=== PATIENT | female | born 1960 | race Caucasian/White ===

== ENCOUNTER 2021-03-12 15:56 | Emergency (ER) | payer OTHER ==
[2021-03-12 16:12] VITALS: BP 153/81; PULSE 111
[2021-03-12 17:21] LABS: ANION GAP 10.9 mEq/L (7-13); CHLORIDE,CL 92 mmol/L (98-107); SODIUM,NA 128 mmol/L (136-145)
[2021-03-12] MEDS ORDERED: Doxycycline Monohydrate 100 MG Cap PO ONE (17:39)
[2021-03-12] MEDS ORDERED: Sodium Chloride 0.9% 1,000 ML IV ONE (17:39)
[2021-03-12 17:45] LABS: CORONAVIRUS COVID-19 NAA NEGATIVE (NEGATIVE)
[2021-03-12] MEDS ORDERED: Doxycycline Monohydrate 100 MG Cap ONE (18:11)
== END 2021-03-12 19:09 | disposition home or self-care (01) ==
LOC: DL.ED 15:56
DX: J18.9 Pneumonia, unspecified organism (principal); I10 Essential (primary) hypertension; D75.839 Thrombocytosis, unspecified; Z88.0 Allergy status to penicillin; Z79.899 Other long term (current) drug therapy; Z87.891 Personal history of nicotine dependence; Z20.822 Contact with and (suspected) exposure to COVID-19
CPT/HCPCS: 0240U; 36415; 71045; 80053; 83605; 84484; 85025; 86140; 93010; 99285; A9270; J7030

== ENCOUNTER 2021-03-22 09:16 | Inpatient (IN) | payer OTHER ==
[2021-03-22] MEDS ORDERED: Sodium Chloride 0.9% 10 ML Syringe FLUSH PRN ×2 (09:39→14:32)
[2021-03-22 10:19] LABS: ANION GAP 15.3 mEq/L (7-13); CHLORIDE,CL 92 mmol/L (98-107); SODIUM,NA 126 mmol/L (136-145)
[2021-03-22 10:41] LABS: CORONAVIRUS COVID-19 NAA NEGATIVE (NEGATIVE); RESPIRATORY SYNCYTIAL VIR NAA NEGATIVE (NEGATIVE)
[2021-03-22] MEDS ORDERED: Iopamidol 612 MG/ML 100 ML Bottle IVPUSH ONE (10:56)
[2021-03-22] MEDS ORDERED: Clindamycin in 0.9 % Sod Chlor 600 MG in Premix Bag 1 BAG IV ONE ×2 (11:42)
[2021-03-22] MEDS ORDERED: Ondansetron 4 MG/2 ML SDV IVPUSH PRN (14:32)
[2021-03-22] MEDS ORDERED: Temazepam 15 MG Cap PO PRN (14:32)
[2021-03-22] MEDS ORDERED: Acetaminophen 325 MG Tab PO PRN (14:32)
[2021-03-22] MEDS ORDERED: Temazepam 15 MG Cap GTUBE PRN (14:42)
[2021-03-22] MEDS ORDERED: Acetaminophen Soln 160 MG/5 ML UD Cup GTUBE PRN ×2 (15:22→15:57)
[2021-03-22] MEDS ORDERED: Albuterol 0.083% 2.5 MG/3 ML Neb Soln INH PRN (15:35)
[2021-03-22] MEDS ORDERED: Ibuprofen Susp 100 MG/5 ML 5 ML UD Cup PO PRN (15:57)
[2021-03-22] MEDS ORDERED: Ibuprofen Susp 100 MG/5 ML 5 ML UD Cup GTUBE PRN (15:58)
[2021-03-22] MEDS ORDERED: HYDROMORPHONE 1 MG/ML PO PRN (16:31)
[2021-03-22] MEDS: MAGIC MOUTH WASH PO PRN ×2 (16:47→19:48)
[2021-03-22] MEDS: Clindamycin in 0.9 % Sod Chlor 600 MG/50 ML BAG IV SCH (19:50)
[2021-03-22] MEDS ORDERED: Clindamycin Phosphate 600 MG in Sodium Chloride 0.9% 100 ML IV SCH (20:00)
[2021-03-22] MEDS ORDERED: Heparin Sodium 5,000 Units/ML Vial SUBCUT SCH (22:00)
[2021-03-23] MEDS: MAGIC MOUTH WASH PO PRN ×2 (00:24→05:32)
[2021-03-23] MEDS: Clindamycin in 0.9 % Sod Chlor 600 MG/50 ML BAG IV SCH (04:57)
[2021-03-23 05:31] VITALS: BP 110/63; PULSE 126
[2021-03-23] MEDS ORDERED: Lisinopril 20 MG Tab GTUBE SCH (09:00)
[2021-03-24] MEDS ORDERED: FENTANYL 75 MCG TOP SCH (21:00)
== END 2021-03-23 06:00 | disposition home or self-care (01) | DRG 194 ==
LOC: DL.ED 09:16 → DL.MS 13:23
PROVIDERS: ADMIT Internal Medicine; ATTEND Internal Medicine
DX: J18.9 Pneumonia, unspecified organism (principal); J44.0 Chronic obstructive pulmonary disease with (acute) lower respiratory infection; E87.1 Hypo-osmolality and hyponatremia; H54.7 Unspecified visual loss; M54.9 Dorsalgia, unspecified; G89.29 Other chronic pain; M54.2 Cervicalgia; I10 Essential (primary) hypertension; Z20.822 Contact with and (suspected) exposure to COVID-19; E61.1 Iron deficiency; R13.10 Dysphagia, unspecified; Z88.0 Allergy status to penicillin; Z88.1 Allergy status to other antibiotic agents; Z87.891 Personal history of nicotine dependence; Z28.82 Immunization not carried out because of caregiver refusal; Z85.810 Personal history of malignant neoplasm of tongue
CPT/HCPCS: 0241U; 36415; 71045; 71260; 80053; 81003; 83605; 85025; 86140; 87040; 96365; 99285-25; J3490; Q9967

== ENCOUNTER 2021-03-23 10:39 | Inpatient (IN) | payer OTHER ==
[2021-03-23] MEDS ORDERED: Albuterol 0.083% 2.5 MG/3 ML Neb Soln INH PRN (11:19)
[2021-03-23] MEDS ORDERED: Ibuprofen Susp 100 MG/5 ML 5 ML UD Cup PO PRN (11:22)
[2021-03-23] MEDS ORDERED: HYDROMORPHONE 1 MG/ML PO PRN (11:58)
[2021-03-23] MEDS ORDERED: HYDROmorphone 0.5 MG/0.5 ML Syringe IVPUSH ONE (12:24)
[2021-03-23] MEDS: metroNIDAZOLE/Normal Saline 500 MG in Premix Bag 100 BAG IV SCH ×2 (12:38→20:25)
[2021-03-23] MEDS ORDERED: Patient's Own Medication 1 Each PO PRN (13:11)
[2021-03-23] MEDS: HYDROMORPHONE 1 MG/ML PO PRN ×2 (16:14→20:36)
[2021-03-23] MEDS: DEXAMETHASONE 0.5 MG/5 ML PO SCH ×2 (16:31→17:54)
[2021-03-23] MEDS: Acetaminophen Soln 160 MG/5 ML UD Cup PO PRN (18:08)
[2021-03-23] MEDS: Check Patch TRDERM SCH (20:29)
[2021-03-24] MEDS: HYDROMORPHONE 1 MG/ML PO PRN ×4 (03:01→18:11)
[2021-03-24] MEDS: metroNIDAZOLE/Normal Saline 500 MG in Premix Bag 100 BAG IV SCH ×3 (05:05→21:12)
[2021-03-24 07:51] LABS: ANION GAP 13.3 mEq/L (7-13); CHLORIDE,CL 98 mmol/L (98-107); SODIUM,NA 131 mmol/L (136-145)
[2021-03-24] MEDS: MAGIC MOUTH WASH PO PRN ×4 (08:36→21:25)
[2021-03-24] MEDS: DEXAMETHASONE 0.5 MG/5 ML PO SCH ×3 (08:37→16:11)
[2021-03-24] MEDS: Lidocaine 5% 700 MG Patch TOP SCH (08:41)
[2021-03-24] MEDS: Check Patch TRDERM SCH ×2 (08:43→21:26)
[2021-03-24] MEDS ORDERED: Lisinopril 20 MG Tab PO SCH (09:00)
[2021-03-24] MEDS ORDERED: Omeprazole 20 MG Cap.CR PO SCH (09:00)
[2021-03-24] MEDS: cefTRIAXone 2 GM in Sodium Chloride 0.9% 100 ML IV SCH (12:13)
[2021-03-24] MEDS: Omeprazole 20 MG Cap.CR PO SCH (12:23)
[2021-03-24] MEDS: Lisinopril 20 MG Tab PO SCH (12:23)
[2021-03-24] MEDS ORDERED: Sodium Chloride 0.9% 10 ML Syringe FLUSH PRN (13:55)
[2021-03-24] MEDS ORDERED: fentaNYL 25 MCG/HR Transdermal Patch TRDERM SCH (21:00)
[2021-03-24] MEDS ORDERED: [UNRECOGNIZED DRUG - REMARK] TRDERM SCH (21:00)
[2021-03-24] MEDS ORDERED: fentaNYL 50 MCG/HR Transdermal Patch TRDERM SCH (21:00)
[2021-03-24] MEDS: [UNRECOGNIZED DRUG - REMARK] TRDERM SCH (21:27)
[2021-03-25] MEDS: HYDROMORPHONE 1 MG/ML PO PRN ×4 (00:30→23:54)
[2021-03-25] MEDS: metroNIDAZOLE/Normal Saline 500 MG in Premix Bag 100 BAG IV SCH ×3 (03:54→19:57)
[2021-03-25] MEDS: MAGIC MOUTH WASH PO PRN ×5 (04:05→23:55)
[2021-03-25] MEDS: Check Patch TRDERM SCH ×2 (08:21→23:55)
[2021-03-25] MEDS: DEXAMETHASONE 0.5 MG/5 ML PO SCH ×3 (08:21→17:14)
[2021-03-25] MEDS: Enoxaparin 40 MG/0.4 ML Syringe SUBCUT SCH (08:22)
[2021-03-25] MEDS: Lidocaine 5% 700 MG Patch TOP SCH (08:22)
[2021-03-25] MEDS: cefTRIAXone 2 GM in Sodium Chloride 0.9% 100 ML IV SCH (12:18)
[2021-03-25] MEDS: Lisinopril 20 MG Tab PO SCH (12:36)
[2021-03-25] MEDS: Omeprazole 20 MG Cap.CR PO SCH (12:38)
[2021-03-25] MEDS: [UNRECOGNIZED DRUG - REMARK] TRDERM SCH (23:55)
[2021-03-26] MEDS: Acetaminophen Soln 160 MG/5 ML UD Cup PO PRN (02:21)
[2021-03-26] MEDS: metroNIDAZOLE/Normal Saline 500 MG in Premix Bag 100 BAG IV SCH (04:22)
[2021-03-26] MEDS: HYDROMORPHONE 1 MG/ML PO PRN (04:48)
[2021-03-26 07:54] LABS: ANION GAP 11.1 mEq/L (7-13); CHLORIDE,CL 101 mmol/L (98-107); SODIUM,NA 133 mmol/L (136-145)
[2021-03-26 08:10] VITALS: BP 115/65; PULSE 102
[2021-03-26] MEDS: Lidocaine 5% 700 MG Patch TOP SCH (08:32)
[2021-03-26] MEDS: Enoxaparin 40 MG/0.4 ML Syringe SUBCUT SCH (08:32)
[2021-03-26] MEDS: DEXAMETHASONE 0.5 MG/5 ML PO SCH (08:36)
[2021-03-26] MEDS: MAGIC MOUTH WASH PO PRN (08:36)
[2021-03-26] MEDS: Check Patch TRDERM SCH (08:38)
== END 2021-03-26 11:00 | disposition home or self-care (01) | DRG 193 ==
LOC: DL.MS 10:40 → UNDOADMIN 10:40 → DL.MS 11:15
PROVIDERS: ADMIT Internal Medicine; ATTEND Internal Medicine
DX: J18.9 Pneumonia, unspecified organism (principal); J96.00 Acute respiratory failure, unspecified whether with hypoxia or hypercapnia; E87.1 Hypo-osmolality and hyponatremia; J90 Pleural effusion, not elsewhere classified; Z68.1 Body mass index [BMI] 19.9 or less, adult; J44.9 Chronic obstructive pulmonary disease, unspecified; J32.9 Chronic sinusitis, unspecified; C76.0 Malignant neoplasm of head, face and neck; D63.0 Anemia in neoplastic disease; R63.4 Abnormal weight loss; I10 Essential (primary) hypertension; Z68.24 Body mass index [BMI] 24.0-24.9, adult; Z79.899 Other long term (current) drug therapy; Z79.52 Long term (current) use of systemic steroids; Z79.1 Long term (current) use of non-steroidal anti-inflammatories (NSAID); Z87.01 Personal history of pneumonia (recurrent); Z90.89 Acquired absence of other organs; Z98.890 Other specified postprocedural states; Z93.1 Gastrostomy status
CPT/HCPCS: 36415; 71045; 80048; 82728; 83540; 83550; 83615; 83930; 84155; 85027; 87493; 94010; A9270-GY; J0696; J1650; J3490

== ENCOUNTER 2021-05-17 06:01 | Inpatient (IN) | payer OTHER ==
[2021-05-17] MEDS ORDERED: Acetaminophen 500 MG Tab PO ONE (06:56)
[2021-05-17] MEDS ORDERED: Acetaminophen Soln 160 MG/5 ML UD Cup PO ONE (07:12)
[2021-05-17 07:18] LABS: ANION GAP 13.8 mEq/L (7-13); CHLORIDE,CL 95 mmol/L (98-107); SODIUM,NA 132 mmol/L (136-145)
[2021-05-17 07:31] LABS: CORONAVIRUS COVID-19 NAA NEGATIVE (NEGATIVE); RESPIRATORY SYNCYTIAL VIR NAA NEGATIVE (NEGATIVE)
[2021-05-17] MEDS ORDERED: Meropenem 1 GM in Sodium Chloride 0.9% 100 ML IV ONE (07:55)
[2021-05-17] MEDS ORDERED: Sodium Chloride 0.9% 500 ML IV SCH (08:00)
[2021-05-17] MEDS ORDERED: Albuterol 0.083% 2.5 MG/3 ML Neb Soln INH PRN (10:41)
[2021-05-17] MEDS ORDERED: Ondansetron 4 MG/2 ML SDV IVPUSH PRN (10:44)
[2021-05-17] MEDS: Aspirin 325 MG Tab GTUBE SCH (11:28)
[2021-05-17] MEDS ORDERED: Levofloxacin/Dextrose 5%-Water 750 MG in Premix Bag 1 BAG IV SCH (12:00)
[2021-05-17] MEDS ORDERED: Sodium Chloride 0.9% 10 ML Syringe FLUSH PRN (12:40)
[2021-05-17] MEDS: Heparin Sodium 5,000 Units/ML Vial SUBCUT SCH ×2 (13:54→21:37)
[2021-05-17] MEDS ORDERED: Ibuprofen Susp 100 MG/5 ML 5 ML UD Cup PO PRN (14:11)
[2021-05-17] MEDS: MAGIC MOUTHWASH PO PRN ×5 (14:11→23:46)
[2021-05-17] MEDS: NYSTATIN 100000 UNIT/ML PO SCH ×2 (17:11→20:24)
[2021-05-17] MEDS: VANCOMYCIN HCL PO SCH ×2 (17:12→20:25)
[2021-05-17] MEDS: ACETAMINOPHEN PO PRN (17:15)
[2021-05-17] MEDS: HYDROMORPHONE 1 MG/ML PO PRN (17:47)
[2021-05-18] MEDS: MAGIC MOUTHWASH PO PRN ×9 (03:02→23:19)
[2021-05-18] MEDS: ACETAMINOPHEN PO PRN ×2 (03:04→16:13)
[2021-05-18] MEDS: Heparin Sodium 5,000 Units/ML Vial SUBCUT SCH ×3 (05:45→21:15)
[2021-05-18 06:32] LABS: ANION GAP 11.9 mEq/L (7-13); CHLORIDE,CL 101 mmol/L (98-107); SODIUM,NA 137 mmol/L (136-145)
[2021-05-18] MEDS: Aspirin 325 MG Tab GTUBE SCH (08:04)
[2021-05-18] MEDS: PROBIOTIC PO SCH (08:21)
[2021-05-18] MEDS: VANCOMYCIN HCL PO SCH ×4 (08:22→20:11)
[2021-05-18] MEDS: NYSTATIN 100000 UNIT/ML PO SCH ×4 (08:30→20:12)
[2021-05-18] MEDS ORDERED: fentaNYL 50 MCG/HR Transdermal Patch TRDERM SCH (09:00)
[2021-05-18] MEDS: HYDROMORPHONE 1 MG/ML PO PRN ×5 (09:13→23:19)
[2021-05-18] MEDS: Levofloxacin/Dextrose 5%-Water 750 MG in Premix Bag 1 BAG IV SCH (09:25)
[2021-05-18] MEDS: LORazepam 0.5 MG Tab GTUBE PRN (10:36)
[2021-05-19] MEDS: MAGIC MOUTHWASH PO PRN ×7 (01:05→11:57)
[2021-05-19] MEDS: ACETAMINOPHEN PO PRN (02:22)
[2021-05-19] MEDS: HYDROMORPHONE 1 MG/ML PO PRN ×2 (04:49→10:23)
[2021-05-19] MEDS: Heparin Sodium 5,000 Units/ML Vial SUBCUT SCH (05:57)
[2021-05-19] MEDS: Aspirin 325 MG Tab GTUBE SCH (09:10)
[2021-05-19] MEDS: PROBIOTIC PO SCH (09:10)
[2021-05-19] MEDS: VANCOMYCIN HCL PO SCH ×2 (09:11→12:01)
[2021-05-19] MEDS: NYSTATIN 100000 UNIT/ML PO SCH ×2 (09:11→12:00)
[2021-05-19] MEDS: Levofloxacin/Dextrose 5%-Water 750 MG in Premix Bag 1 BAG IV SCH (09:12)
[2021-05-19] MEDS ORDERED: Morphine 2 MG/ML SYRINGE IVPUSH PRN (10:19)
[2021-05-19] MEDS: LORazepam 0.5 MG Tab GTUBE PRN (10:22)
[2021-05-19 13:06] VITALS: BP 98/64; PULSE 107
[2021-05-19] MEDS ORDERED: HYDROMORPHONE 1 MG/ML JTUBE PRN (13:37)
[2021-05-19] MEDS ORDERED: Aspirin 325 MG Tab JTUBE SCH (13:38)
[2021-05-19] MEDS ORDERED: LORazepam 0.5 MG Tab JTUBE PRN (13:39)
[2021-05-19] MEDS ORDERED: ACETAMINOPHEN JTUBE PRN (13:39)
[2021-05-19] MEDS ORDERED: Ibuprofen Susp 100 MG/5 ML 5 ML UD Cup JTUBE PRN (13:39)
[2021-05-19] MEDS ORDERED: PROBIOTIC JTUBE SCH (13:40)
[2021-05-19] MEDS ORDERED: VANCOMYCIN HCL JTUBE SCH (13:40)
== END 2021-05-19 12:53 | DRG 177 ==
LOC: DL.ED 06:01 → DL.MS 08:05
PROVIDERS: ADMIT Internal Medicine; ATTEND Hospitalist
PROC: 3E0G76Z Introduction of Nutritional Substance into Upper GI, Via Natural or Artificial Opening (ICD-10-PCS; principal; 2021-05-17)
PROC: 0DW6XUZ Revision of Feeding Device in Stomach, External Approach (ICD-10-PCS; 2021-05-19)
DX: J69.0 Pneumonitis due to inhalation of food and vomit (principal); J96.01 Acute respiratory failure with hypoxia; E87.1 Hypo-osmolality and hyponatremia; E44.0 Moderate protein-calorie malnutrition; A04.72 Enterocolitis due to Clostridium difficile, not specified as recurrent; C09.9 Malignant neoplasm of tonsil, unspecified; H54.7 Unspecified visual loss; I10 Essential (primary) hypertension; J44.9 Chronic obstructive pulmonary disease, unspecified; G89.29 Other chronic pain; M54.2 Cervicalgia; G43.909 Migraine, unspecified, not intractable, without status migrainosus; E61.1 Iron deficiency; Z20.822 Contact with and (suspected) exposure to COVID-19; Z79.82 Long term (current) use of aspirin; Z79.899 Other long term (current) drug therapy; Z92.21 Personal history of antineoplastic chemotherapy; Z92.3 Personal history of irradiation; Z88.0 Allergy status to penicillin; Z87.01 Personal history of pneumonia (recurrent); Z86.19 Personal history of other infectious and parasitic diseases; Z90.89 Acquired absence of other organs; Z87.891 Personal history of nicotine dependence
CPT/HCPCS: 0241U; 36415; 71045; 80048; 80053; 81001; 83605; 83735; 84100; 84443; 84484; 85025; 85379; 86140; 87040; 87086; 93005; 99222; 99285-25; A9270-GY; J1644; J1956; J2185; J2270; J3490; J7040

== ENCOUNTER 2021-05-19 16:52 | Inpatient (IN) | payer OTHER ==
[2021-05-19] MEDS ORDERED: Bisacodyl 5 MG Tab PO PRN (17:12)
[2021-05-19] MEDS ORDERED: Albuterol 0.083% 2.5 MG/3 ML Neb Soln NEB PRN (17:12)
[2021-05-19] MEDS ORDERED: Ondansetron 4 MG Tab.DIS PO PRN (17:12)
[2021-05-19] MEDS ORDERED: Promethazine 25 MG Tab PO PRN (17:12)
[2021-05-19] MEDS: HYDROMORPHONE PO PRN ×2 (17:30→23:21)
[2021-05-19] MEDS: MAGIC MOUTHWASH PO PRN ×5 (17:44→23:21)
[2021-05-19] MEDS ORDERED: Levofloxacin 500 MG Tab PO SCH (17:45)
[2021-05-19] MEDS: ACID JTUBE SCH (20:40)
[2021-05-19] MEDS: [UNRECOGNIZED DRUG - OTHER] JTUBE SCH (20:40)
[2021-05-19] MEDS: NYSTATIN 100000 UNIT/ML PO SCH (20:42)
[2021-05-19] MEDS: VANCOMYCIN HCL JTUBE SCH (20:44)
[2021-05-19] MEDS: Enoxaparin 40 MG/0.4 ML Syringe SUBCUT SCH (21:38)
[2021-05-20] MEDS: MAGIC MOUTHWASH PO PRN ×9 (03:17→22:54)
[2021-05-20] MEDS ORDERED: Nitroglycerin 0.4 MG Tab.SL SL PRN (03:32)
[2021-05-20] MEDS: Morphine 2 MG/ML SYRINGE IVPUSH PRN ×3 (03:50→17:35)
[2021-05-20 06:19] LABS: ANION GAP 9.7 mEq/L (7-13); CHLORIDE,CL 95 mmol/L (98-107); SODIUM,NA 127 mmol/L (136-145)
[2021-05-20] MEDS ORDERED: Aspirin 81 MG Tab.Chew GTUBE SCH (08:00)
[2021-05-20] MEDS ORDERED: fentaNYL 50 MCG/HR Transdermal Patch TRDERM SCH (09:30)
[2021-05-20] MEDS: HYDROMORPHONE PO PRN ×2 (09:41→14:16)
[2021-05-20] MEDS ORDERED: Doxycycline Monohydrate 100 MG Cap PO SCH (09:45)
[2021-05-20] MEDS ORDERED: Doxycycline Monohydrate 100 MG Cap JTUBE SCH (09:50)
[2021-05-20] MEDS ORDERED: Bisacodyl 5 MG Tab JTUBE PRN (09:50)
[2021-05-20] MEDS: ACID JTUBE SCH (09:51)
[2021-05-20] MEDS: [UNRECOGNIZED DRUG - OTHER] JTUBE SCH (09:51)
[2021-05-20] MEDS ORDERED: Promethazine 25 MG Tab JTUBE PRN (09:52)
[2021-05-20] MEDS: NYSTATIN 100000 UNIT/ML PO SCH ×4 (09:52→20:54)
[2021-05-20] MEDS: VANCOMYCIN HCL JTUBE SCH ×4 (09:54→20:55)
[2021-05-20] MEDS: Doxycycline Monohydrate 100 MG Cap JTUBE SCH ×2 (12:29→20:52)
[2021-05-20] MEDS: ACETAMINOPHEN 500 MG/15 ML JTUBE PRN (18:43)
[2021-05-20] MEDS: HYDROMORPHONE JTUBE PRN (18:48)
[2021-05-20] MEDS: Enoxaparin 40 MG/0.4 ML Syringe SUBCUT SCH (20:51)
[2021-05-21] MEDS: MAGIC MOUTHWASH PO PRN ×7 (02:48→19:27)
[2021-05-21] MEDS: HYDROMORPHONE JTUBE PRN ×3 (03:59→20:22)
[2021-05-21] MEDS: Doxycycline Monohydrate 100 MG Cap JTUBE SCH ×2 (08:55→20:25)
[2021-05-21] MEDS: NYSTATIN 100000 UNIT/ML PO SCH ×4 (08:55→20:23)
[2021-05-21] MEDS: Aspirin 81 MG Tab.Chew JTUBE SCH (08:55)
[2021-05-21] MEDS: ACID JTUBE SCH (08:58)
[2021-05-21] MEDS: VANCOMYCIN HCL JTUBE SCH ×4 (08:58→20:24)
[2021-05-21] MEDS: [UNRECOGNIZED DRUG - OTHER] JTUBE SCH (08:58)
[2021-05-21] MEDS: Enoxaparin 40 MG/0.4 ML Syringe SUBCUT SCH (20:25)
[2021-05-22] MEDS: MAGIC MOUTHWASH PO PRN ×5 (00:24→12:29)
[2021-05-22] MEDS: HYDROMORPHONE JTUBE PRN ×2 (00:34→07:34)
[2021-05-22] MEDS: ACETAMINOPHEN 500 MG/15 ML JTUBE PRN (07:56)
[2021-05-22] MEDS: Aspirin 81 MG Tab.Chew JTUBE SCH (07:57)
[2021-05-22] MEDS: Doxycycline Monohydrate 100 MG Cap JTUBE SCH (08:00)
[2021-05-22] MEDS: NYSTATIN 100000 UNIT/ML PO SCH ×2 (08:05→12:31)
[2021-05-22] MEDS: VANCOMYCIN HCL JTUBE SCH ×2 (08:09→12:39)
[2021-05-22] MEDS: [UNRECOGNIZED DRUG - OTHER] JTUBE SCH (08:10)
[2021-05-22] MEDS: ACID JTUBE SCH (08:10)
[2021-05-22 12:10] LABS: ANION GAP 11.8 mEq/L (7-13); CHLORIDE,CL 99 mmol/L (98-107); SODIUM,NA 135 mmol/L (136-145)
[2021-05-22 12:17] VITALS: BP 128/71; PULSE 106
[2021-05-22] MEDS ORDERED: Doxycycline Monohydrate 100 MG Cap ONE (12:23)
== END 2021-05-22 14:20 | disposition home or self-care (01) | DRG 177 ==
LOC: DL.MS 17:01
PROVIDERS: ADMIT Hospitalist; ATTEND Hospitalist
DX: J69.0 Pneumonitis due to inhalation of food and vomit (principal); J96.01 Acute respiratory failure with hypoxia; A04.72 Enterocolitis due to Clostridium difficile, not specified as recurrent; E87.1 Hypo-osmolality and hyponatremia; E44.0 Moderate protein-calorie malnutrition; Z68.1 Body mass index [BMI] 19.9 or less, adult; R62.7 Adult failure to thrive; C02.9 Malignant neoplasm of tongue, unspecified; J44.9 Chronic obstructive pulmonary disease, unspecified; H54.7 Unspecified visual loss; G89.29 Other chronic pain; M54.2 Cervicalgia; G43.909 Migraine, unspecified, not intractable, without status migrainosus; I10 Essential (primary) hypertension; J32.9 Chronic sinusitis, unspecified; J30.9 Allergic rhinitis, unspecified; Z79.82 Long term (current) use of aspirin; Z79.899 Other long term (current) drug therapy; Z88.0 Allergy status to penicillin; Z90.89 Acquired absence of other organs
CPT/HCPCS: 36415; 71046; 80048; 85027; 93005; A9270-GY; J1650; J2270

== ENCOUNTER 2021-08-30 14:58 | Emergency (ER) | payer OTHER ==
[2021-08-30] MEDS ORDERED: Ondansetron 4 MG Tab.DIS PO ONE (14:59)
[2021-08-30] MEDS ORDERED: Sodium Chloride 0.9% 10 ML Syringe FLUSH PRN (17:06)
[2021-08-30] MEDS ORDERED: Ondansetron 4 MG/2 ML SDV IVPUSH ONE (17:24)
[2021-08-30 17:25] VITALS: BP 130/88; PULSE 98
[2021-08-30] MEDS ORDERED: Ketorolac 30 MG/ML SDV IVPUSH ONE (17:25)
[2021-08-30] MEDS ORDERED: HYDROmorphone 0.5 MG/0.5 ML Syringe IVPUSH ONE (17:43)
[2021-08-30] MEDS ORDERED: Meropenem 1 GM in Sodium Chloride 0.9% 100 ML IV ONE (17:46)
[2021-08-30 18:04] LABS: ANION GAP 11.8 mEq/L (7-13); CHLORIDE,CL 101 mmol/L (98-107); SODIUM,NA 138 mmol/L (136-145)
[2021-08-30 18:10] LABS: ESTIMATED GFR 99 mL/min (>=60)
[2021-08-30] MEDS ORDERED: Ondansetron 4 MG Tab.DIS ONE (19:07)
== END 2021-08-30 18:56 | disposition home or self-care (01) ==
LOC: DL.ED 14:58
DX: R11.0 Nausea (principal); J06.9 Acute upper respiratory infection, unspecified; I10 Essential (primary) hypertension; Z88.0 Allergy status to penicillin; Z79.899 Other long term (current) drug therapy; Z79.82 Long term (current) use of aspirin
CPT/HCPCS: 36415; 71046; 80053; 83605; 83735; 84145; 85025; 86140; 96374; 96375; 99283; A9270; J1170; J1885; J2405; J3490

== ENCOUNTER 2021-09-05 09:22 | Emergency (ER) | payer OTHER ==
[2021-09-05] MEDS ORDERED: Sodium Chloride 0.9% 1,000 ML IV ONE (10:28)
[2021-09-05] MEDS ORDERED: Metoclopramide 10 MG/2 ML SDV IVPUSH ONE (10:28)
[2021-09-05 12:03] VITALS: BP 120/88; PULSE 104
== END 2021-09-05 12:43 | disposition home or self-care (01) ==
LOC: DL.ED 09:22
DX: E86.0 Dehydration (principal); R11.2 Nausea with vomiting, unspecified; J44.9 Chronic obstructive pulmonary disease, unspecified; I10 Essential (primary) hypertension; Z88.0 Allergy status to penicillin; Z79.82 Long term (current) use of aspirin; Z87.891 Personal history of nicotine dependence
CPT/HCPCS: 36415; 71046; 80053; 85025; 96361; 96374; 99285-25; J2765; J7030

== ENCOUNTER 2021-10-02 13:21 | Emergency (ER) | payer OTHER ==
[2021-10-02] MEDS ORDERED: Acetaminophen 500 MG Tab PO ONE (17:31)
[2021-10-02 17:37] LABS: ANION GAP 12.1 mEq/L (7-13); CHLORIDE,CL 100 mmol/L (98-107); SODIUM,NA 139 mmol/L (136-145)
[2021-10-02 17:38] LABS: ESTIMATED GFR 102 mL/min (>=60)
[2021-10-02 17:43] LABS: CORONAVIRUS COVID-19 NAA NEGATIVE (NEGATIVE); RESPIRATORY SYNCYTIAL VIR NAA NEGATIVE (NEGATIVE)
[2021-10-02] MEDS ORDERED: Acetaminophen Soln 160 MG/5 ML UD Cup PO ONE (18:02)
[2021-10-02 18:56] LABS: AMPHETAMINES,URINE NEGATIVE (NEGATIVE); BARBITURATES,URINE NEGATIVE (NEGATIVE); BENZODIAZEPINE,URINE NEGATIVE (NEGATIVE); MDMA (ECSTASY), URINE NEGATIVE (NEGATIVE); METHADONE,URINE NEGATIVE (NEGATIVE); METHAMPHETAMINES,URINE NEGATIVE (NEGATIVE); OPIATES,URINE POSITIVE (NEGATIVE); OXYCODONE,URINE NEGATIVE (NEGATIVE); PHENCYCLIDINE,URINE NEGATIVE (NEGATIVE); TCA,URINE NEGATIVE (NEGATIVE)
== END 2021-10-02 19:35 | disposition home or self-care (01) ==
LOC: DL.ED 13:21 → MERGE 13:21 → DL.ED 19:35
DX: R11.2 Nausea with vomiting, unspecified (principal); E83.42 Hypomagnesemia; J44.9 Chronic obstructive pulmonary disease, unspecified; I10 Essential (primary) hypertension; Z88.0 Allergy status to penicillin; Z79.899 Other long term (current) drug therapy; Z79.82 Long term (current) use of aspirin; Z87.891 Personal history of nicotine dependence; Z20.822 Contact with and (suspected) exposure to COVID-19
CPT/HCPCS: 0241U; 36415; 80053; 80305-QW; 80307; 81001; 82140; 82150; 83605; 83690; 83735; 83880; 84145; 84443; 84484; 85025; 86140; 87086; 99283; 99284; A9270-GY